=== PATIENT | female | born 1965 ===

== ENCOUNTER 2018-01-02 10:59 | Day surgery (SDC) | payer OTHER ==
[2018-01-02] VITALS (9 sets, daily range): BP systolic 129–151; BP diastolic 63–79
[~2018-01-02] VITALS: Ht 152.4 cm; Wt 85.3 kg
--- NOTE | 2018-01-02 07:28 | Pre-Procedure Note/Attestation ---
Pre-Procedure Note/Attestation Complete Prior to Procedure Planned Procedure: right Procedure Narrative: shoulder arthroscopy, sad, possible rct repair Indications for Procedure Pre-Operative Diagnosis: right shoulder rct, impingement Attestation I attest that I discussed the nature of the procedure; its benefits; risks and complications; and alternatives (and the risks and benefits of such alternatives ), prior to the procedure, with the patient (or the patient's legal community engagement representative). I attest that, if there was a reasonable possibility of needing a blood transfusion, the patient (or the patient's legal community engagement representative) was given the [facility] standardized written summary, pursuant to the [place] Blood Safety Act ([place] Health and Safety Code # 1645, as amended). I attest that I re-evaluated the patient just prior to the surgery and that there has been no change in the patient's H&P, except as documented below: Rodrigo Nguyen MD Jan 02, 2018 07:28
--- NOTE | 2018-01-02 07:28 | Operative Note - PDOC ---
Operative Note Operative Note Pre-op Diagnosis: right shoulder rct, impingement Procedure: see op report Post-op Diagnosis: same as pre-op plus Operative Findings: consistent w/pre-op dx studies Anesthesia: general Specimen: none Complications: none Condition: stable Estimated Blood Loss: none Implant(s) used?: Yes Rodrigo Nguyen MD Jan 02, 2018 07:28
[~2018-01-02 10:59] MED LIST: NKM; ceFAZolin 1gm IVPB IVPB ONE; celeBREX 200mg Cap **SURGERY PATIENTS ONLY ORAL ONE; oxyCONTIN 20mg tab ORAL ONE
[2018-01-02] MEDS ORDERED: oxyCONTIN 20mg tab ORAL ONE (11:20)
[2018-01-02] MEDS ORDERED: celeBREX 200mg Cap **SURGERY PATIENTS ONLY ORAL ONE (11:20)
[2018-01-02] MEDS ORDERED: Zemuron 50mg/5ml Inj IV ONE (12:02)
[2018-01-02] MEDS ORDERED: Bupivacaine w/Epi 0.25% 30ml Vial INJ ONE ×2 (12:02→12:21)
[2018-01-02] MEDS ORDERED: Midazolam 2mg/2ml Inj ONE (12:06)
[2018-01-02] MEDS ORDERED: EPINEPHrine 1mg/1ml Amp ONE (12:20)
[2018-01-02] MEDS ORDERED: Kenalog-40 1ml Vial ONE (12:20)
[2018-01-02 12:27] LABS: APPEARANCE,URINE CLEAR; BILIRUBIN, URINE NEGATIVE (NEGATIVE); COLOR,URINE PALE YELLOW; GLUCOSE, URINE (UA) NEGATIVE (NEGATIVE); KETONES,URINE NEGATIVE (NEGATIVE); LEUKOCYTE ESTERASE ,URINE 1+ (NEGATIVE); NITRITE,URINE NEGATIVE (NEGATIVE); PH,URINE 6 (4.5-8.0); PROTEIN,URINE NEGATIVE (NEGATIVE); UROBILINOGEN,URINE NORMAL MG/DL (0.0-1.0)
[2018-01-02] MEDS ORDERED: fentaNYL 100 mcg/2 mL IV ONE (12:29)
[2018-01-02] MEDS ORDERED: NS Irrig 4000ml IRRIG ONE (12:30)
[2018-01-02] MEDS ORDERED: Acetaminophen (Non formulary) 100 ML IV ONE (12:30)
[2018-01-02] MEDS ORDERED: LR 1000ml ONE (12:30)
[2018-01-02] MEDS ORDERED: Propofol 200mg/20ml IV ONE (13:10)
[2018-01-02] MEDS ORDERED: Neostigmine 1mg/ml 10ml Inj ONE (13:10)
[2018-01-02] MEDS ORDERED: Lidocaine 1% MPF 10mg/ml 5ml ONE (13:10)
[2018-01-02] MEDS ORDERED: Glycopyrrolate 0.2mg/ml 1ml Vial ONE (13:10)
[2018-01-02] MEDS ORDERED: Metoclopramide 10mg/2ml Inj ONE (13:10)
[2018-01-02] MEDS ORDERED: Ropivacaine 5mg/ml Vial 30ml INJ ONE (13:10)
[2018-01-02] MEDS ORDERED: fentaNYL 100 mcg/2 mL IV PRN (13:15)
[2018-01-02] MEDS ORDERED: Metoclopramide 10mg/2ml Inj IVP PRN (13:15)
--- NOTE | 2018-01-02 13:15 | Anethesia Preoperative Eval ---
Anesthesia Pre-op PMH/ROS General Date of Evaluation: Jan 02, 2018 Time of Evaluation: 12:30 Anesthesiologist: rosa ASA Score: ASA 2 Mallampati Score Class I : Soft palate, uvula, fauces, pillars visible Class II: Soft palate, uvula, fauces visible Class III: Soft palate, base of uvula visible Class IV: Only hard plate visible Mallampati Classification: Class III Surgeon: chivo Diagnosis: right shoulder impingment Surgical Procedure: right shoulder arthroscopy Anesthesia History: none Family History: no anesthesia problems Allergies: Coded Allergies: No Known Allergies (Unverified , 01/01/18) Medications: see eMAR Patient NPO?: Yes NPO Date: Jan 01, 2018 NPO Time: 23:59 Past Medical History Cardiovascular: Denies: HTN, CAD, [place], valve dz, arrhythmia, other Pulmonary: Denies: asthma, COPD, ULISES, other Gastrointestinal/Genitourinary: Denies: GERD, CRI, ESRD, other Neurologic/Psychiatric: Denies: dementia, CVA, depression/anxiety, TIA, other Endocrine: Denies: DM, hypothyroidism, steroids, other HEENT: Denies: cataract (L), cataract (R), glaucoma, [place] (L), [place] (R), other Hematology/Immune: Denies: anemia, DVT, bleeding disorder, other Musculoskeletal/Integumentary: Reports: OA Other: obesity Anesthesia Pre-op Phys. Exam Physician Exam Last Vital Signs Date Time Temp Pulse Resp B/P (MAP) Pulse Ox O2 Delivery O2 Flow Rate FiO2 01/02/18 11:43 Room Air 01/02/18 11:33 96.8 62 18 140/65 99 Constitutional: NAD Neurologic: CN 2-12 intact Cardiovascular: RRR Respiratory: CTA Gastrointestinal: S/NT/ND Airway Exam Mallampati Classification 3 Mallampati Score: Class III MO: full Neck: thick TMD: 1fb ROM: full Dentures: no upper, no lower Anesthesia Pre-op A/P Studies Pre-op Studies: EKG - sr Risk Assessment & Plan Plan: general peripheral nerve block Status Change Before Surgery: No Pre-Antibiotics Drug: ancef Given Within 1 Hr of Incision: Yes Time Given: 12:50 Che Martins CRNA Jan 02, 2018 13:15
--- NOTE | 2018-01-02 13:55 | Immediate Post-Op Evaluation ---
Immediate Post-Op Evalulation Immediate Post-Op Evalulation Procedure: right shoulder arthroscopy Date of Evaluation: Jan 02, 2018 Time of Evaluation: 13:55 IV Fluids: 500 Blood Pressure Systolic: 151 Blood Pressure Diastolic: 74 Pulse Rate: 55 Respiratory Rate: 14 O2 Sat by Pulse Oximetry: 100 Temperature (Fahrenheit): 97.8 Pain Score (1-10): 0 Nausea: No Vomiting: No Complications none Patient Status: awake, reacts, patent Hydration Status: adequate Drug: ancef Given Within 1 Hr of Incision: Yes Time Given: 12:55 Che Martins SUPERVISOR AUDIT CLERKS Jan 02, 2018 13:55
[2018-01-02] MEDS ORDERED: HYDROmorphone 1mg/ml Carpuject SUBQ PRN (21:01)
[2018-01-02] MEDS ORDERED: D5 1/2NS 1,000 ML IV SCH (21:01)
[2018-01-02] MEDS ORDERED: Norco 5mg/325mg tab ORAL PRN (21:01)
[2018-01-02] MEDS ORDERED: Tylenol #3 tab (300mg/30mg) ORAL PRN (21:01)
--- NOTE | 2018-01-02 21:02 | Operative Note - Dictated ---
DATE OF OPERATION: 01/02/2018 PREOPERATIVE DIAGNOSES: 1. Right shoulder high-grade rotator cuff tear. 2. Right shoulder biceps tendon tear. 3. Impingement syndrome. POSTOPERATIVE DIAGNOSES: 1. Right shoulder full-thickness tear. 2. Right shoulder biceps tendon tear. 3. Right shoulder impingement syndrome. PROCEDURES: 1. Right shoulder arthroscopic extensive intra-articular debridement. 2. Soft tissue tenodesis along the biceps tendon. 3. Arthroscopic rotator cuff repair. 4. Subacromial decompression bursectomy. SURGEON: Rodrigo Nguyen M.D. ANESTHESIA: Interscalene with general. INDICATION FOR PROCEDURE: The patient is a pleasant female, who has had progressive right shoulder pain. She had MRI, which showed a high-grade almost full-thickness rotator cuff tear. She failed conservative treatment and elected to undergo right shoulder arthroscopy and rotator cuff repair. Risks, limitations, expectations, and complications of the procedure were discussed in detail. All questions were addressed. DESCRIPTION OF PROCEDURE: After informed consent was obtained, the patient was brought to the operative room and placed under interscalene general anesthesia. The patient was then carefully placed in the beach-chair position. Right shoulder was prepped and draped in a sterile manner. Time-out was performed. A posterolateral skin incision was made in the glenohumeral joint. Systematic tour of the shoulder was performed. There was tenderness along the biceps tendon and there is also complete detachment along the supraspinatus and infraspinatus especially along the tuberosity joint and debridement of the biceps tendon down to the superior aspect of the labrum was performed. The biceps tendon seemed to be maintained in the bicipital tuberosity. At this point, the camera was placed in the subacromial space. A complete bursectomy was performed. Closure was identified and acromioplasty was completed from lateral to medial and then posterior to anterior. At this point, the soft tissue was debrided from lateral to the articular margin and anchor was then placed. Two mattress sutures were placed along the anterior and posterior aspect of the rotator cuff tear along with lateral row anchor. The footprint was recreated. At this point, the instruments were removed. Portal sites were closed with 3-0 Monocryl sutures. The patient was awoken and taken to recovery room with stable vital signs. ESTIMATED BLOOD LOSS: None. COMPLICATIONS: None. SPECIMENS: None. IMPLANTS: Include 2 rotator cuff repair anchors. Rodrigo Nguyen M.D. DR: NIKIA JOB#: [id number] CC:
[2018-01-05 15:47] VITALS: BP 133/96
--- NOTE | 2018-01-05 15:47 | 48 Hour Post Anesthesia Eval ---
Post Anesthesia Evaluation Procedure: right shoulder arthroscopy Date of Evaluation: Jan 05, 2018 Time of Evaluation: 15:47 Blood Pressure Systolic: 133 0: 96 Pulse Rate: 70 Respiratory Rate: 14 O2 Sat by Pulse Oximetry: 96 Airway: patent Nausea: No Vomiting: No Pain Intensity: 0 Hydration Status: adequate Cardiopulmonary Status: stable Mental Status/LOC: patient returned to baseline Post-Anesthesia Complications: none Follow-up care needed: N/A Che Martins CRNA Jan 05, 2018 15:47
== END 2018-01-02 17:00 | disposition home or self-care (01) ==
LOC: SUR 10:59
DX: M75.41 Impingement syndrome of right shoulder (principal); M75.101 Unspecified rotator cuff tear or rupture of right shoulder, not specified as traumatic; S46.111A Strain of muscle, fascia and tendon of long head of biceps, right arm, initial encounter; E66.9 Obesity, unspecified; M19.90 Unspecified osteoarthritis, unspecified site; R06.83 Snoring
CPT/HCPCS: 29826; 29827; 29828; 81003; C1713; J0171; J0690; J2250; J2405; J2704; J2710; J2765; J2795; J3010; 94003; 94150